=== PATIENT | female | born 1975 | race African-American/Black ===

== ENCOUNTER 2022-07-12 04:25 | Emergency (ER) | payer MEDICAID ==
[~2022-07-12] VITALS: Ht 160 cm; Wt 55.0 kg
[2022-07-12 04:28] VITALS: BP 134/90
[2022-07-12] MEDS ORDERED: TETANUS, DIPHTHERIA, PERTUSSIS VAC/PF 0.5ML (>10YR OLD) IM ONE (05:30)
== END 2022-07-12 06:55 | disposition home or self-care (01) ==
LOC: ER 04:25
DX: S61.210A Laceration without foreign body of right index finger without damage to nail, initial encounter (principal); W45.8XXA Other foreign body or object entering through skin, initial encounter; Y93.89 Activity, other specified; Y92.89 Other specified places as the place of occurrence of the external cause; Y99.8 Other external cause status
CPT/HCPCS: 12001; 73130; 81025; 90471; 90715; 99283; Z7610

== ENCOUNTER 2023-01-16 15:12 | Emergency (ER) | payer MEDICAID ==
[~2023-01-16] VITALS: Ht 160 cm; Wt 60.0 kg
[2023-01-16 15:15] VITALS: BP 164/96; PULSE 114; RESP 16; TEMP 98.4; O2SAT 100
[2023-01-16 16:06] LABS: HEMATOCRIT. 35.9 % (36.0-48.0); HEMOGLOBIN. 11.4 g/dL (12.0-16.0); MEAN CORPUSCULAR HEMOGLOBIN 27.3 pg (28.0-32.0); MEAN CORPUSCULAR HGB CONC 31.7 g/dL (31.0-37.0); MEAN CORPUSCULAR VOLUME 86.2 fL (81.0-99.0); MEAN PLATELET VOLUME 8.4 fl (7.4-10.4); PLATELET 339 x1000/uL (130-400); RED BLOOD CELL COUNT 4.16 mill/uL (4.2-5.4); RED CELL DISTRIBUTION WIDTH 17.6 % (11.6-14.6); WHITE BLOOD COUNT 11.2 x1000/uL (4.5-11.0)
[2023-01-16 16:07] LABS: DIFFERENTIAL COMMENT 1
[2023-01-16 16:24] LABS: HCG SCREEN NEGATIVE
[2023-01-16 16:56] LABS: INDEX HEMOLYSI 1 (1-3); INDEX ICTERIC 1 (1-4); INDEX LIPEMIC 1 (1-3)
[2023-01-16 16:58] LABS: ALBUMIN 4.2 g/dL (3.4-5.0); CALCIUM 8.6 mg/dL (8.5-10.1)
[2023-01-16 17:03] LABS: ALANINE AMINOTRANSFERASE 26 IU/L (13-61); ASPARTATE AMINOTRANSFERASE 29 IU/L (15-37); CARBON DIOXIDE 21 mEq/L (21-32); CHLORIDE 102 mEq/L (98-107); CREATININE 0.5 mg/dL (0.6-1.3); GLUCOSE 121 mg/dL (70-105); POTASSIUM 3.6 mEq/L (3.5-5.1); SODIUM 135 mEq/L (136-145); UREA NITROGEN BLOOD 6 mg/dL (7-21)
[2023-01-16 17:04] LABS: BILIRUBIN TOTAL 0.5 mg/dL (0.1-1.0); PROTEIN TOTAL 8.3 g/dL (6.0-8.3)
[2023-01-16 17:34] LABS: PLATELET ESTIMATE NORMAL
[2023-01-16 17:35] LABS: ANISOCYTOSIS 1+
== END 2023-01-16 17:45 | disposition left against medical advice (07) ==
LOC: ER 15:16
DX: R53.1 Weakness (principal); R00.2 Palpitations
CPT/HCPCS: 36415; 71045; 80053; 84703; 85025; 93005; 99285

== ENCOUNTER 2024-12-14 15:09 | Emergency (ER) | payer MEDICAID ==
[~2024-12-14] VITALS: Ht 162.6 cm; Wt 59.0 kg
[2024-12-14 15:10] VITALS: O2SAT 97
[2024-12-14] MEDS: LEVETIRACETAM 1000MG PREMIX 100 ML IV ONE (15:46)
[2024-12-14 16:50] LABS: BASOPHILS % 0.9 % (0.0-2.0); EOSINOPHILS % 3.7 % (0.0-5.0); HEMATOCRIT. 40.6 % (36.0-48.0); HEMOGLOBIN. 13.3 g/dL (12.0-16.0); LYMPHOCYTES % 27.8 % (20.0-50.0); MEAN PLATELET VOLUME 8.4 fl (7.4-10.4); MONOCYTES % 9.3 % (2.0-8.0); NEUTROPHILS % 58.3 % (40.0-76.0); PLATELET 225 x1000/uL (130-400); RED BLOOD CELL COUNT 4.09 mill/uL (4.2-5.4); RED CELL DISTRIBUTION WIDTH 13.9 % (11.6-14.6)
[2024-12-14 17:04] LABS: CREATININE 0.6 mg/dL (0.6-1.0); UREA NITROGEN BLOOD < 5 mg/dL (9-23)
[2024-12-14 17:06] LABS: ASPARTATE AMINOTRANSFERASE 21 IU/L (<34); BILIRUBIN DIRECT 0.2 mg/dL (<=3.0); BILIRUBIN TOTAL 0.6 mg/dL (0.1-1.0); PROTEIN TOTAL 6.6 g/dL (6.0-8.3)
[2024-12-14 17:29] LABS: HCG SCREEN NEGATIVE
[2024-12-14 18:03] VITALS: BP 137/80; PULSE 76; RESP 22; TEMP 37; O2SAT 98
== END 2024-12-14 18:09 | disposition home or self-care (01) ==
LOC: ER 15:09
DX: S09.90XA Unspecified injury of head, initial encounter (principal); G40.909 Epilepsy, unspecified, not intractable, without status epilepticus; I10 Essential (primary) hypertension; F17.200 Nicotine dependence, unspecified, uncomplicated; X58.XXXA Exposure to other specified factors, initial encounter; Y93.89 Activity, other specified; Y92.89 Other specified places as the place of occurrence of the external cause; Y99.8 Other external cause status
CPT/HCPCS: 80076; 80048; 80320; 84703; 83735; 85025; 36415; 70450; 93005; 96365; 99285; J1953; A4606; G0480